=== PATIENT | female | born 1970 | race Caucasian/White ===

== ENCOUNTER → 2023-06-03 | Outpatient (CLI) | payer BC, SELFPAY ==
[2023-06-03 09:19] LABS: Hematocrit 42.1 % (37-47); Hemoglobin 14.4 g/dL (12.0-15.0); Mean Corp Hgb Conc 34.2 g/dL (32-36); Mean Corpuscular Hgb 30.3 pg (27.0-32.0); Mean Corpuscular Volume 88.6 fL (81-99); Mean Platelet Vol. 9.7 fl (6.2-12.0); Platelet Count 247 K/mm3 (150-450); RBC Distribution Width CV 11.8 % (11.6-14.6); RBC Distribution Width SD 37.8 fl (35.1-43.9); Red Blood Count 4.75 M/mm3 (4.2-5.4)
[2023-06-03 09:36] LABS: Hemoglobin A1c 7.2 % (3.8-5.6)
[2023-06-03 09:56] LABS: ALB/GLOB Ratio 0.8 RATIO (0.9-2.4); AST(SGOT) 37 U/L (15-37); Alanine Aminotransfer ALT/SGPT 51 U/L (13-56); Albumin, Serum 3.4 g/dL (3.2-5.0); Alkaline Phosphatase 113 U/L (45-117); Anion Gap 6 (5-15); BUN 9 mg/dL (7-18); BUN/Creat Ratio 15.1 RATIO (10-20); Calcium,Total 9.3 mg/dL (8.5-10.1); Chloride 107 mmol/L (98-107); EST Glomerular Filtration Rate 112 mL/min (>60); Est Glom Filt Rate - Afr Amer 136 mL/min (>60); Globulin 4.5 g/dL (2.2-4.2); Glucose 189 mg/dL (74-106); Potassium 3.8 mmol/L (3.5-5.1); Protein, Total 7.9 g/dL (6.4-8.2); Sodium Level 139 mmol/L (136-145); T4 Free Direct 1.51 ng/dL (0.76-1.46); Thyroid Stim Hormone (TSH) 0.42 uIU/mL (0.358-3.74)
[2023-06-03 11:51] LABS: Microalbumin,Random Urine 69.7 mg/L (NO RANGE EST.); Microalbumin:Creatinine Ratio 57.6 mg/g CRE (<30 mg/g CRE)
[2023-06-05 08:12] LABS: Thyroglobulin Antibody < 1.0 IU/mL (0.0-0.9); Thyroid Peroxidase AB 11 IU/mL (0-34); Thyroid Stim Immunoglob <0.10 IU/L (0.00-0.55)
== END | disposition home or self-care (01) ==
LOC: LAB 07:58
PROVIDERS: PCP Nurse Practitioner Family; Referring Provider Nurse Practitioner Family; Visit Provider Nurse Practitioner Family
DX: E11.65 Type 2 diabetes mellitus with hyperglycemia (principal); I10 Essential (primary) hypertension; E03.9 Hypothyroidism, unspecified
CPT/HCPCS: 36415; 80053; 82043; 82570; 83036; 84439; 84443; 84445; 85027; 86376; 86800

== ENCOUNTER 2024-12-15 23:13 | Emergency (ER) | payer BC, SELFPAY ==
[2024-12-15 23:14] VITALS: BP 200/91; PULSE 84; RESP 18; TEMP 36; O2SAT 97
--- OUTSIDE RECORDS SUMMARY | 2024-12-15 23:38 | XMS RPT_ITS | CCD ---
Author Organization [facility] Care Team Providers Care Bell Maker Name Role Phone Ivonne More MD Primary Care Provider Unavailable Primary Care Provider Unavailabl e Marilee ARTISTS' MODEL, Tessa Referring Unavailable Marilee ARTISTS' MODEL, Tessa Attending Unavailable Marilee ARTISTS' MODEL, Tessa Primary Care Unavailable TESSA DUMONT QUALITY LIAISON Attending Unavailable TESSA DUMONT CNP Consulting Unavailable TESSA DUMONT CNP Primary Care Unavailable TESSA DUMONT CNP Admitting Unavailable PROVIDER, UNKNOWN Consulting Unavailable PROVIDER, UNKNOWN Consulting Unavailable TESSA DUMONT CNP Attending Unavailable TESSA DUMONT CNP Consulting Unavailable TESSA DUMONT CNP Primary Care Unavailable TESSA DUMONT CNP Admitting Unavailable PROVIDER, UNKNOWN Consulting Unavailable PROVIDER, UNKNOWN Consulting Unavailable Allergies Allergy Classification Reported Allergen(s) Allergy Type Date of Onset Reaction(s) Facility (10 sources) Azithromycin Drug Allergy 04-11-2021 Unknown [facility] Work Phone: (1 source) Azithromycin Drug Allergy 12-19-2021 [facility] Repository (1 source) Azithromycin Drug Allergy [facility] Repository Medications Current Medications Medication Drug Class(es) Dates Sig (Normalized) Sig (Original) benzonatate 100 mg oral capsule (2 sources) Non-narcotic Antitussive Start: 4 End: 4 take 1 capsule by mouth every eight hours as needed for cough and cough benzonatate (TESSALON PERLES) 100 mg capsule Indications: Acute cough Take 1 capsule by mouth three times a day as needed for cough for up to 21 days. 21 capsule 0 04/07/2023 04/28/2023 Active Comment on above: Take 1 capsule by [facility] three times a day as needed for cough for up to 21 days. cyclobenzaprine hydrochloride 10 mg oral tablet (1 source) Muscle Relaxant Start: 2 take 10 mg by mouth at bedtime Cyclobenzaprine Active 10 MG PO BEDTIME December 19, 2021 1:00am methylPREDNISolone (2 sources) Corticosteroid Start: End: 4 methylPREDNISolone (MEDROL, MITALI,) 4 mg Dose-Pack Indications: Acute cough Take as instructed per package. 21 tablet 0 04/07/2023 04/13/2023 Active Start: 04-07-2023 End: 04-07-2023 methylPREDNISolone (MEDROL, MITALI,) 4 mg Dose-Pack Indications: Acute cough Take as instructed per package. 21 tablet 0 04/07/2023 04/07/2023 Discontinued Comment on above: Take as instructed p er package. Completed/Discontinued Medications Medication Drug Class(es) Dates Sig (Normalized) Sig (Original) [id number] 200 actuat albuterol 0.09 mg/actuat metered dose inhaler (2 sources) beta2-Adrenergic Agonist Start: 04-07-2023 End: 04-07-2023 take 2 puff(s) by inhalation every four hours as needed for wheezing albuterol HFA (PROVENTIL HFA, VENTOLIN HFA) 90 mcg/actuation inhaler Indications: Acute cough Inhale 2 Puffs as instructed every 4 hours as needed for wheezing/shortness of breath. 1 Each 0 04/07/2023 Active Comment on above: Inhale 2 Puffs as in structed every 4 hours as needed for wheezing/shortness of breath. amLODIPine 10 mg oral tablet (12 sources) Dihydropyridine Calcium Channel Rosanne Start: 06-10-2021 End: 04-07-2023 take 1 tablet by mouth once daily amLODIPine (NORVASC) 10 mg tablet Indications: Primary hypertension Take 1 tablet by mouth once daily. 30 tablet 0 04/07/2023 04/07/2023 Discontinued Start: 06-07-2021 take 1 tablet by gregor th once daily amLODIPine (NORVASC) 10 mg tablet Take 1 tablet by mouth once daily. 30 tablet 11 06/07/2021 Active Start: 04-11-2021 End: 06-07-2021 take 1 tablet by mouth once daily amLODIPine (NORVASC) 5 mg tablet Take 1 tablet by mouth once daily. 30 tablet 2 04/11/2021 06/07/2021 Discontinued Comment on above: Take 1 tablet by gregor once daily. fluticasone propionate 0.05 mg/actuat metered dose nasal spray (1 source) Corticosteroid Start: take 1 spray(s) nasal route once daily fluticasone (FLONASE ALLERGY RELIEF) 50 mcg/actuation nasal spray Indications: Acute cough Use 1 Yale in each nostril once daily. 1 Each 0 04/07/2023 Active Comment on above: Use 1 Yale in each nostril once daily. Problems Active Problems Problem Classification Problem Date Documented Da te Episodic/Chronic Diabetes mellitus with complications (3 sources) Type 2 diabetes mellitus with hyperglycemia; Translations: [Type 2 diabetes mellitus with hyperglycemia] Onset: 06-09-2023 Chronic Diabetes or abnormal glucose tolerance complicating ; childbirth; or the puerperium (9 sources) Unspecified diabetes mellitus in , unspecified trimester; Translations: [Diabetes mellitus of mother, complicating , childbirth, or the puerperium, antepartum condition or complication] Onset: 08-19-2010 08-19-2010 Chronic Disorders of lipid metabolism (1 source) Hyperlipidemia, unspecified; Translations: [Hyperlipidemia, unspecified] Onset: 08-26-2024 Chronic E Codes: Natural/environment (1 source) Dog scratch; Translations: [Other contact with dog, initial encounter] Episodic Essential hypertension (5 sources) Hypertensive disorder; Translations: [Essential (primary) hypertension] Onset: 04-28-2024 Chronic Other lower respiratory disease (1 source) Dyspnea on exertion; Translations: [Shortness of breath] Episodic Other lower respiratory disease (1 source) Cough; Translations: [Acute cough] 04-07-2023 Episodic Other non-traumatic joint disorders (1 source) Pain in right knee; Translations: [Pain in joint, lower leg] Episodic Other nutritional; endocrine; and metabolic disorders (2 sources) Severe obesity; Translations: [Morbid (severe) obesity due to excess calories] Chronic Other nutritional; endocrine; and metabolic disorders (9 sources) Obesity; Translations: [Obesity, unspecified] Onset: 07-03-2006 07-03-2006 Chronic Sprains and strains (2 sources) Strain of muscle, fascia and tendon of other parts of biceps, left arm, initial encounter; Translations: [Strain of left biceps] 12-19-2021 Episodic Thyroid disorders (1 source) Hypothyroidism, unspecified; Translations: [Hypothyroidism, unspecified] Onset: 04-28-2024 Chronic Past or Other Problems Problem Classification Problem Date Documented Da te Episodic/Chronic Hypertension complicating ; childbirth and the puerperium (9 sources) -induced hypertension; Translations: [Gestational [-induced] hypertension without significant proteinuria, unspecified trimester] Onset: 02-05-2011 02-05-2011 Episodic Other complications of (9 sources) Multigravida of advanced maternal age; Translations: [Supervision of elderly multigravida, unspecified trimester] Onset: 08-19-2010 08-19-2010 Episodic Other complications of (9 sources) Supervision of other high risk pregnancies, unspecified trimester; Translations: [Supervision of other high-risk ] Onset: 08-19-2010 08-19-2010 Episodic Results Test Name Value Interpretation Reference Range Facility Thyroglobulin Antibodyon TG AB < 1.0 Normal 0.0-0.9 [facility] Comment on above: Result Comment: Thyr oglobulin Antibody measured by [employer] Methodology It should be noted that the presence of thyroglobulin antibodies may not be pathogenic nor diagnostic, especially at very low levels. The assay retail account representative has found that four percent of individuals without evidence of thyroid disease or autoimmunity will have positive TgAb levels up to 4 IU/mL. Performed By: #### L [id number], L100.0500, L3400.4700, L506.0400, L500.4050, L501.9985, L502.0250, L3300.7027, L3300.6900 #### [facility] [address] [place], [place], [id number] Thyroid Peroxidase ABon 05-11 THYR PEROX AB 11 IU/mL Normal 0-34 [facility] Comment on above: Result Comment: Perf ormed at: - [address] [id number] [employer] Repairer: Mckay Bustillos MD, Phone: [phone] Performed at: [facility] [address] [id number] [employer] Repairer: Messi Hamlin PhD, Phone: [phone] Performed By: #### L [id number], L100.0500, L3400.4700, L506.0400, L500.4050, L501.9985, L502.0250, L3300.7027, L3300.6900 #### [facility] [address] [place], [place], [id number] Thyroid Stim Immunoglobon THY STIM IMMUNO <0.10 Normal 0.00-0.55 [facility] Comment on above: Performed By: #### L [id number], L100.0500, L3400.4700, L506.0400, L500.4050, L501.9985, L502.0250, L3300.7027, L3300.6900 #### [facility] [address] [facility] [place], [place], [id number] Basophil percentageOrdered B y: Tessa Martinezler on 06-03-2023 Bilirubin [Mass/Vol] 0.40 mg/dL 0.20-1.00 [facility] Comment on above: For patients on eltr ombopag therapy, use of Dimension [place] TBIL is not recommended. Chloride [Moles/Vol] 107 mmol/L 98-107 [facility] Glucose [Mass/Vol] 189 mg/dL 74-106 [facility] Comment on above: Fasting Glucose resu lt greater than or equal to 126 mg/dL suggests DIABETES MELLITUS per A.D.A. criteria. Hemoglobin (Bld) [Mass/Vol] 14.4 g/dL 12.0-15.0 [facility] Potassium [Moles/Vol] 3.8 mmol/L 3.5-5.1 [facility] Protein [Mass/Vol] 7.9 g/dL 6.4-8.2 [facility] Sodium [Moles/Vol] 139 mmol/L 136-145 [facility] WBC (Bld) [#/Vol] 8.0 10*3/uL 4.4-11.0 [facility] CBC-Complete Blood Cnt No Di ffon 06-03-2023 Erythrocyte distribution width (RBC) [Ratio] 11.8 % Normal 11.6-14.6 [facility] Comment on above: Performed By: #### L 501.9520, L100.0500, L3400.4700, L506.0400, L500.4050, L501.9985, L502.0250, L3300.7027, L3300.6900 #### [facility] [address] [place], [address] Hematocrit (Bld) [Volume fraction] 42.1 % Normal 37-47 [facility] Comment on above: Performed By: #### L [id number], L100.0500, L3400.4700, L506.0400, L500.4050, L501.9985, L502.0250, L3300.7027, L3300.6900 #### [facility] [address] [facility], [address] Hemoglobin (Bld) [Mass/Vol] 14.4 g/dL Normal 12.0-15.0 [facility] Comment on above: Performed By: #### L [id number], L100.0500, L3400.4700, L506.0400, L500.4050, L501.9985, L502.0250, L3300.7027, L3300.6900 #### [facility] [address] [place], [address] MCH (RBC) [Entitic mass] 30.3 pg Normal 27.0-32.0 [facility] Comment on above: Performed By: #### L [id number], L100.0500, L3400.4700, L506.0400, L500.4050, L501.9985, L502.0250, L3300.7027, L3300.6900 #### [facility] [address] [place], [address] MCHC (RBC) [Mass/Vol] 34.2 g/dL Normal 32-36 [facility] Comment on above: Performed By: #### L 501.9520, L100.0500, L3400.4700, L506.0400, L500.4050, L501.9985, L502.0250, L3300.7027, L3300.6900 #### [facility] [address] [place], [address] MCV (RBC) [Entitic vol] 88.6 fL Normal 81-99 [facility] Comment on above: Performed By: #### L 501.9520, L100.0500, L3400.4700, L506.0400, L500.4050, L501.9985, L502.0250, L3300.7027, L3300.6900 #### [facility] [address] [place], [address] Platelet mean volume (Bld) [Entitic vol] 9.7 fL Normal 6.2-12.0 [facility] Comment on above: Performed By: #### L 501.9520, L100.0500, L3400.4700, L506.0400, L500.4050, L501.9985, L502.0250, L3300.7027, L3300.6900 #### [facility] [address] [place], [address] Platelets (Bld) [#/Vol] 247 10*3/uL Normal 150-450 [facility] Comment on above: Performed By: #### L 501.9520, L100.0500, L3400.4700, L506.0400, L500.4050, L501.9985, L502.0250, L3300.7027, L3300.6900 #### [facility] [address] [place], [address] RBC (Bld) [#/Vol] 4.75 10*6/uL Normal 4.2-5.4 [facility] Comment on above: Performed By: #### L 501.9520, L100.0500, L3400.4700, L506.0400, L500.4050, L501.9985, L502.0250, L3300.7027, L3300.6900 #### [facility] [address] [facility] [place], [address] RDW SD 37.8 fl Normal 35.1-43.9 [facility] Comment on above: Performed By: #### L 501.9520, L100.0500, L3400.4700, L506.0400, L500.4050, L501.9985, L502.0250, L3300.7027, L3300.6900 #### [facility] [address] [facility] [place], [address] WBC (Bld) [#/Vol] 8.0 10*3/uL Normal 4.4-11.0 [facility] Comment on above: Performed By: #### L 501.9520, L100.0500, L3400.4700, L506.0400, L500.4050, L501.9985, L502.0250, L3300.7027, L3300.6900 #### [facility] [address] [facility] [place], [address] [facility] Albumin [Mass/Vol] 3.4 g/dL Normal 3.2-5.0 [facility] Comment on above: Performed By: #### L 501.9520, L100.0500, L3400.4700, L506.0400, L500.4050, L501.9985, L502.0250, L3300.7027, L3300.6900 #### [facility] [address] [facility] [place], [address] Albumin/Globulin [Mass ratio] 0.8 {ratio} Low 0.9-2.4 [facility] Comment on above: Performed By: #### L 501.9520, L100.0500, L3400.4700, L506.0400, L500.4050, L501.9985, L502.0250, L3300.7027, L3300.6900 #### [facility] [address] [place], [address] ALK P 113 U/L Normal 45-117 [facility] Comment on above: Performed By: #### L 501.9520, L100.0500, L3400.4700, L506.0400, L500.4050, L501.9985, L502.0250, L3300.7027, L3300.6900 #### [facility] [address] [place], [address] ALT [Catalytic activity/Vol] 51 U/L Normal 13-56 [facility] Comment on above: Performed By: #### L 501.9520, L100.0500, L3400.4700, L506.0400, L500.4050, L501.9985, L502.0250, L3300.7027, L3300.6900 #### [facility] [address] [place], [address] AST [Catalytic activity/Vol] 37 U/L Normal 15-37 [facility] Comment on above: Performed By: #### L 501.9520, L100.0500, L3400.4700, L506.0400, L500.4050, L501.9985, L502.0250, L3300.7027, L3300.6900 #### [facility] [address] [place], [address] Bilirubin [Mass/Vol] 0.40 mg/dL Normal 0.20-1.00 [facility] Comment on above: Result Comment: For patients on eltrombopag therapy, use of Dimension [place] TBIL is not recommended. Performed By: #### L 501.9520, L100.0500, L3400.4700, L506.0400, L500.4050, L501.9985, L502.0250, L3300.7027, L3300.6900 #### [facility] [address] [place], [address] BUN/CRE 15.1 RATIO Normal 10-20 [facility] Comment on above: Performed By: #### L 501.9520, L100.0500, L3400.4700, L506.0400, L500.4050, L501.9985, L502.0250, L3300.7027, L3300.6900 #### [facility] [address] [place], [address] CA,Total 9.3 mg/dL Normal 8.5-10.1 [facility] Comment on above: Performed By: #### L 501.9520, L100.0500, L3400.4700, L506.0400, L500.4050, L501.9985, L502.0250, L3300.7027, L3300.6900 #### [facility] [address] [place], [address] Chloride [Moles/Vol] 107 mmol/L Normal 98-107 [facility] Comment on above: Performed By: #### L 501.9520, L100.0500, L3400.4700, L506.0400, L500.4050, L501.9985, L502.0250, L3300.7027, L3300.6900 #### [facility] [address] [place], [address] CO2 [Moles/Vol] 26.0 mmol/L Normal 21.0-32.0 [facility] Comment on above: Performed By: #### L 501.9520, L100.0500, L3400.4700, L506.0400, L500.4050, L501.9985, L502.0250, L3300.7027, L3300.6900 #### [facility] [address] [place], [place], [address] Creatinine [Mass/Vol] 0.60 mg/dL Normal 0.55-1.02 [facility] Comment on above: Result Comment: The validity of the calculated GFR GFRAA in patients over 70 years has not been determined. Clinical correlation is essential. Performed By: #### L 501.9520, L100.0500, L3400.4700, L506.0400, L500.4050, L501.9985, L502.0250, L3300.7027, L3300.6900 #### [facility] [address] [place], [place], [id number] EST GFR - AA 136 mL/min Normal >60 [facility] Comment on above: Result Comment: Afri can Algerian GFR Calc Performed By: #### L 501.9520, L100.0500, L3400.4700, L506.0400, L500.4050, L501.9985, L502.0250, L3300.7027, L3300.6900 #### [facility] [address] [place], [address] GAP 6 Normal 5-15 [facility] Comment on above: Performed By: #### L 501.9520, L100.0500, L3400.4700, L506.0400, L500.4050, L501.9985, L502.0250, L3300.7027, L3300.6900 #### [facility] [address] [place], [place], [id number] GFR/1.73 sq M.predicted among non-blacks MDRD (S/P/Bld) [Vol rate/Area] 112 mL/min/{1.73_m2} Normal >60 [facility] Comment on above: Result Comment: Non- GFR Calc Performed By: #### L 501.9520, L100.0500, L3400.4700, L506.0400, L500.4050, L501.9985, L502.0250, L3300.7027, L3300.6900 #### [facility] [address] [place], [address] Globulin (S) [Mass/Vol] 4.5 g/dL High 2.2-4.2 [facility] Comment on above: Performed By: #### L 501.9520, L100.0500, L3400.4700, L506.0400, L500.4050, L501.9985, L502.0250, L3300.7027, L3300.6900 #### [facility] [address] [place], [address] Glucose [Mass/Vol] 189 mg/dL High 74-106 [facility] Comment on above: Result Comment: Fast ing Glucose result greater than or equal to 126 mg/dL suggests DIABETES MELLITUS per A.D.A. criteria. Performed By: #### L 501.9520, L100.0500, L3400.4700, L506.0400, L500.4050, L501.9985, L502.0250, L3300.7027, L3300.6900 #### [facility] [address] [place], [address] Potassium [Moles/Vol] 3.8 mmol/L Normal 3.5-5.1 [facility] Comment on above: Performed By: #### L 501.9520, L100.0500, L3400.4700, L506.0400, L500.4050, L501.9985, L502.0250, L3300.7027, L3300.6900 #### [facility] [address] [place], [address] Sodium [Moles/Vol] 139 mmol/L Normal 136-145 [facility] Comment on above: Performed By: #### L 501.9520, L100.0500, L3400.4700, L506.0400, L500.4050, L501.9985, L502.0250, L3300.7027, L3300.6900 #### [facility] [address] [place], [place], [id number] T PROT 7.9 g/dL Normal 6.4-8.2 [facility] Comment on above: Performed By: #### L 501.9520, L100.0500, L3400.4700, L506.0400, L500.4050, L501.9985, L502.0250, L3300.7027, L3300.6900 #### [facility] [address] [place], [place], [id number] Urea nitrogen [Mass/Vol] 9 mg/dL Normal 7-18 [facility] Comment on above: Performed By: #### L 501.9520, L100.0500, L3400.4700, L506.0400, L500.4050, L501.9985, L502.0250, L3300.7027, L3300.6900 #### [facility] [address] [place], [place], [id number] Determination of erythrocyte mean corpuscular volume (MCV)Ordered By: Tessa Dumont on 06-03-2023 MCV (RBC) [Entitic vol] 88.6 fL 81-99 [facility] Erythrocyte distribution wid th ratioOrdered By: Tessa Dumont on 06-03-2023 Erythrocyte distribution width (RBC) [Ratio] 11.8 % 11.6-14.6 [facility] Erythrocyte distribution wid th standard deviationOrdered By: Tessa Dumont on 06-03-2023 Erythrocyte distribution width (RBC) [Entitic vol] 37.8 fL 35.1-43.9 [facility] Hematocrit Auto (Bld) [Volum e fraction]Ordered By: Tessa Dumont on 06-03-2023 Hematocrit (Bld) [Volume fraction] 42.1 % 37-47 [facility] Hemoglobin A1con 06-03-2023 HbA1c (Bld) [Mass fraction] 7.2 % High 3.8-5.6 [facility] Comment on above: Result Comment: Norm al < 5.7 % Prediabetic 5.7 - 6.4 % Diabetic >or= 6.5 % Please note range changes. Performed By: #### L 501.9520, L100.0500, L3400.4700, L506.0400, L500.4050, L501.9985, L502.0250, L3300.7027, L3300.6900 #### [facility] [address] [place], [place], [id number] Laboratory - Chemistry and C hemistry - challengeOrdered By: Tessa Dumont on 06-03-2023 Albumin/Globulin [Mass ratio] 0.8 {ratio} 0.9-2.4 [facility] ALP [Catalytic activity/Vol] 113 U/L 45-117 [facility] ALT [Catalytic activity/Vol] 51 U/L 13-56 [facility] CO2 [Moles/Vol] 26.0 mmol/L 21.0-32.0 [facility] Globulin (S) [Mass/Vol] 4.5 g/dL 2.2-4.2 [facility] Urea nitrogen/Creatinine [Mass ratio] 15.1 mg/mg 10-20 [facility] Laboratory - Hematology and Cell countsOrdered By: Tessa Dumont on 06-03-2023 MCH (RBC) [Entitic mass] 30.3 pg 27.0-32.0 [facility] MCHC (RBC) [Mass/Vol] 34.2 g/dL 32-36 [facility] Platelet mean volume (Bld) [Entitic vol] 9.7 fL 6.2-12.0 [facility] Platelets (Bld) [#/Vol] 247 10*3/uL 150-450 [facility] Microalb:Creat Ratio,Random URon 06-03-2023 Creatinine [Mass/Vol] 121.00 mg/dL Normal NO RAN GE EST. [facility] Comment on above: Performed By: #### L 501.9520, L100.0500, L3400.4700, L506.0400, L500.4050, L501.9985, L502.0250, L3300.7027, L3300.6900 #### [facility] [address] [place], [place], [id number] MALB:CRE 57.6 mg/g CRE High <30 mg/g CRE [facility] Comment on above: Performed By: #### L 501.9520, L100.0500, L3400.4700, L506.0400, L500.4050, L501.9985, L502.0250, L3300.7027, L3300.6900 #### [facility] [address] [place], [place], [id number] MICROALBUMIN,UR 69.7 mg/L Normal NO RANGE EST. [facility] Comment on above: Performed By: #### L 501.9520, L100.0500, L3400.4700, L506.0400, L500.4050, L501.9985, L502.0250, L3300.7027, L3300.6900 #### [facility] [address] [facility] [address] [place], [place], [id number] No Panel InformationOrdered By: Tessa Dumont on 06-03-2023 Estimated GFR (MDRD) Amer 136 mL/min >60 [facility] Comment on above: GFR Calc Estimated GFR (MDRD) Non-Af Amer 112 mL/min >60 [facility] Comment on above: Non- GFR Calc Thyroglobulin Antibody < 1.0 IU/mL 0.0-0.9 [facility] Comment on above: Thyroglobulin Antibo dy measured by [employer] CoulterMethodologyIt should be noted that the presence of thyroglobulinantibodies may not be pathogenic nor diagnostic, especiallyat very low levels. The assay retail account representative has found thatfour percent of individuals without evidence of thyroiddisease or autoimmunity will have positive TgAb levels upto 4 IU/mL. Urine Microalbumin/Creatini ne Ratio 57.6 mg/g CRE <30 [facility] RBC Auto (Bld) [#/Vol]Ordere d By: Tessa Dumont on 06-03-2023 RBC (Bld) [#/Vol] 4.75 10*6/uL 4.2-5.4 [facility] Serum or plasma calcium clari urement (mass/volume)Ordered By: Tessa Dumont on 06-03-2023 Calcium [Mass/Vol] 9.3 mg/dL 8.5-10.1 [facility] Serum or plasma creatinine m easurement (mass/volume)Ordered By: Tessa Dumont on 06-03-2023 Creatinine [Mass/Vol] 0.60 mg/dL 0.55-1.02 [facility] Comment on above: The validity of the calculated GFR & GFRAA in patients over 70 years has not been determined. Clinical correlation is essential. Serum or plasma thyroid stim ulating hormone (TSH) measurement (units/volume)Ordered By: Tessa Dumont on 06-03-2023 TSH Qn 0.42 uIU/mL 0.358-3.74 [facility] Serum or plasma thyroperoxid ase antibody assay (units/volume)Ordered By: Tessa Dumont on 06-03-2023 TPO Ab Qn 11 [IU]/mL 0-34 [facility] Comment on above: Performed at: [facility] - [address] [id number] Director: Mckay Bustillos MD, Phone: [phone] at: - [facility] [address] [id number] Director: Messi Hamlin PhD, Phone: [phone] Serum or plasma urea nitroge n measurement (mass/volume)Ordered By: Tessa Dumont on 06-03-2023 Urea nitrogen [Mass/Vol] 9 mg/dL 7-18 [facility] T4 Free Directon 06-03-2023 T4 FREE DIRECT 1.51 ng/dL High 0.76-1.46 [facility] Comment on above: Performed By: #### L 501.9520, L100.0500, L3400.4700, L506.0400, L500.4050, L501.9985, L502.0250, L3300.1579, L3300.7930 #### [facility] [facility] [place], [address] Thin prep Papanicolaou smear with manual screeningOrdered By: Tessa Dumont on 06-03-2023 Thin prep Papanicolaou smear with manual screening 3.4 g/dL 3.2-5.0 [facility] Thin prep Papanicolaou smear with manual screening 37 U/L 15-37 [facility] Thin prep Papanicolaou smear with manual screening 6 5-15 [facility] Thin prep Papanicolaou smear with manual screening 69.7 mg/L NO RANGE EST. [facility] Thin prep Papanicolaou smear with manual screening 1.51 ng/dL 0.76-1.46 [facility] Thyroid Stim Hormone (TSH)on 06-03-2023 TSH 0.42 uIU/mL Normal 0.358-3.74 [facility] Comment on above: Performed By: #### L 501.9520, L100.0500, L3400.4700, L506.0400, L500.4050, L501.9985, L502.0250, L3300.7027, L3300.6900 #### [facility] [address] [place] [address], [address] Thyroid stimulating immunogl obulins detectionOrdered By: Tessa Dumont on 06-03-2023 Thyroid stimulating immunoglobulins Ql (S) <0.10 IU/L 0.00-0.55 [facility] Urine creatinine measurement (mass/volume)Ordered By: Tessa Dumont on 06-03-2023 Creatinine (U) [Mass/Vol] 121.00 mg/dL NO RANGE EST. [facility] Whole blood hemoglobin A1c/t otal hemoglobin ratio (mass fraction)Ordered By: Tessa Dumont on 06-03-2023 HbA1c (Bld) [Mass fraction] 7.2 % 3.8-5.6 [facility] Comment on above: Normal < 5.7 % Predi abetic 5.7 - 6.4 % Diabetic >or= 6.5 % Please note range changes. HbA1c (Bld)on 09-09-2022 Average glucose Estimated from glycated hemoglobin (Bld) [Mass/Vol] 146 mg/dL Normal [facility] Comment on above: Order Comment: Speci men Type: BLOOD SPECIMEN Ordering Facility: [facility] Address: [facility] [place] [address] Result Comment: eAG: (Estimated average glucose) is a calculated value from HgbA1c and is insurance claim representative of the average blood glucose level in the last 2-3 month period. Performed By: #### 5 5454-3, MICRO, TGAB, TSIGIM, 95787-1 #### [facility] CLIA [id number] [address] [place] [address] [place] HbA1c (Bld) [Mass fraction] 6.7 % High 4.3-5.6 [facility] Comment on above: Order Comment: Shaun fuentes Type: BLOOD SPECIMEN Ordering Facility: [facility] Address: [facility] [place] [address] Result Comment: Amer ican Diabetes Association guidelines indicate that patients with HgbA1c in the range 5.7-6.4% are at increased risk for development of diabetes, and intervention by lifestyle modification may be beneficial. HgbA1c greater or equal to 6.5% is considered diagnostic of diabetes. Performed By: #### 5 5454-3, MICRO, TGAB, TSIGIM, 71077-9 #### [facility] CLIA [id number] [address] [place] [address] [place] THYROID PEROXIDASE ANTIBODY BLOODon 09-09-2022 TPO Ab Qn [IU]/mL Normal <5.6 [facility] Comment on above: Order Comment: Shaun fuentes Type: BLOOD SPECIMEN Ordering Facility: [facility] Address: [facility] [place] [address] Result Comment: Thyr oid Peroxidase Antibody test is used as an aid in diagnosis of autoimmune thyroid disease. Clinical correlation is required. Performed By: #### 5 5454-3, MICRO, TGAB, TSIGIM, 03083-3 #### [facility] CLIA [id number] [facility] [place] [id number] [place] THYROID STIMULATING IMMUNOGL OBULIN BLOODon 09-09-2022 Thyroid stimulating immunoglobulins actual/normal (S) [Relative mass conc] % Normal <0.55 [facility] Comment on above: Order Comment: Shaun fuentes Type: BLOOD SPECIMEN Ordering Facility: [facility] Address: [address] [place] [address] Result Comment: Thyr oid Stimulating Immunoglobulin test is used as an aid in diagnosis of autoimmune hyperthyroidism especially in patients with Grave's orbitopathy and dermopathy. Low positive TSH receptor stimulating antibody levels may occasionally be found in patients with autoimmune hypothyroidism. Clinical correlation is required. Performed By: #### 5 5454-3, MICRO, TGAB, TSIGIM, 72090-6 #### [facility] CLIA [id number] [address] [place] [address] [place] TSI QUALITATIVE Negative Normal Negative [facility] Comment on above: Order Comment: Shaun fuentes Type: BLOOD SPECIMEN Ordering Facility: [facility] Address: [address] [place] [address] Performed By: #### 5 5454-3, MICRO, TGAB, TSIGIM, 85924-0 #### [facility] CLIA [id number] [address] [place] [address] [place] Thyroglob + Thyroglob Ab pnl SerPlon 09-09-2022 Thyroglobulin Ab Qn [IU]/mL Normal <4.0 [facility] Comment on above: Order Comment: Shaun fuentes Type: BLOOD SPECIMEN Ordering Facility: [facility] Address: [address] [place] [address] Result Comment: The Thyroglobulin Antibody test was performed using the [employer] DXI paramagnetic particle chemiluminescent immunoassay method. Results obtained with different assay methods or kits cannot be used interchangeably. Performed By: #### 5 5454-3, MICRO, TGAB, TSIGIM, 63409-4 #### [facility] CLIA [id number] [address] [place] [address] [place] Thyroglobulin and Thyrogobul in Ab panelon 09-09-2022 THYROGLOBULIN, SERUM 37.1 ng/mL Normal 1.6-50.0 [facility] Comment on above: Order Comment: Shaun men Type: BLOOD SPECIMEN Ordering Facility: [facility] Address: [address] [place] [address] Result Comment: The Thyroglobulin test was performed using the [employer] DXI paramagnetic particle chemiluminescent immunoassay method. Results obtained with different assay methods or kits cannot be used interchangeably. Performed By: #### 5 5454-3, MICRO, TGAB, TSIGIM, 62451-3 #### [facility] CLIA [id number] [address] [place] [address] [place] 1,25-dihydroxyvitamin D3 [Ma ss/Vol]on 09-03-2022 VIT D1,25 DIHYDROXY 37.2 pg/mL Normal 19.9-79.3 [facility] Comment on above: Order Comment: Shaun fuentes Type: BLOOD SPECIMEN Ordering Facility: [facility] Address: [address] [place] [address] Performed By: #### 5 5454-3, 1648-3 #### [facility] CLIA [id number] [address] [place] [address] [place] HbA1c (Bld)on 09-03-2022 Average glucose Estimated from glycated hemoglobin (Bld) [Mass/Vol] 148 mg/dL Normal [facility] Comment on above: Order Comment: Shaun fuentes Type: BLOOD SPECIMEN Ordering Facility: [facility] Address: [address] [place] [address] Result Comment: eAG: (Estimated average glucose) is a calculated value from HgbA1c and is insurance claim representative of the average blood glucose level in the last 2-3 month period. Performed By: #### 5 5454-3, 164-3 #### [facility] CLIA [id number] [address] [place] [address] [place] HbA1c (Bld) [Mass fraction] 6.8 % High 4.3-5.6 [facility] Comment on above: Order Comment: Shaun alfredo Type: BLOOD SPECIMEN Ordering Facility: [facility] Address: [address] [place] [address] Result Comment: Amyohana ican Diabetes Association guidelines indicate that patients with HgbA1c in the range 5.7-6.4% are at increased risk for development of diabetes, and intervention by lifestyle modification may be beneficial. HgbA1c greater or equal to 6.5% is considered diagnostic of diabetes. Performed By: #### 5 5454-3, 1649-3 #### [facility] CLIA [id number] [address] [place] [address] [facility] Ford 08-08-2021 CNPN Telephone [facility] -- CHAPITO WINTERS ([id number]) 1970 F Date Time Provider Department 08/08/21 ANITA RESTREPO [facility] During your visit today, we recorded the following information about you: Radha Rodriguez Data Pss 08/08/2021 12:13 PM Signed I called patient - to schedule a Physical Performance Test - -she does not know where [facility] is. I tried explaining then she got a call. Asked me to call her back. Tried calling back line was busy. I will try again later. Scooby Young RN 08/08/2021 12:59 PM Signed Patient calling to request order for Physical Performance Test be faxed to [facility] . Done. Scooby Young RN Allergies As of Date: 08/08/2021 Noted Allergy Reaction AZITHROMYCIN 04/11/2021 16 - Unknown Date Reviewed: 07/02/2021 Reviewed by: Nevaeh Rogers APRN.FAMILY COUNSELOR - Fully Assessed Reason for Visit: try to schedule a physical Performance Test [Other] Prescriptions as of 08/08/2021 - amLODIPine (NORVASC) 10 mg tablet Take 1 tablet by mouth once daily. 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] 08/19/2010 Gestational hypertension [O13.9] 02/05/2011 Encounter Status:Closed by SCOOBY YOUNG on 08/08/21 [facility] Vital Signs Date Time Vital Sign Value Performing Clinician Faci lity 04-07-2023 18:20-0500 Diastolic blood pressure 100 mm[Hg] Deepika Josue-Eibara [employer]KER [employer].QUALITY LIAISON Work Phone: [facility] 04-07-2023 18:20-0500 Systolic blood pressure 180 mm[Hg] Deepika Josue-Eibara [employer].QUALITY LIAISON Work Phone: [facility] 04-07-2023 18:17-0500 Body temperature 97 [degF] Deepika Josue-Eibara [employer] MA[employer].QUALITY LIAISON Work Phone: [facility] 04-07-2023 18:17-0500 Heart rate 104 /min Deepika Josue-Eibara [employer].QUALITY LIAISON Work Phone: [facility] 04-07-2023 18:17-0500 Respiratory rate 22 /min Deepika Josue-Eibara [employer].QUALITY LIAISON Work Phone: [facility] 04-07-2023 18:17-0500 SaO2% (BldA) [Mass fraction] 97 % Deepika Josue-Eibara [employer].QUALITY LIAISON Work Phone: [facility] 07-02-2021 09:12-0400 Diastolic blood pressure 85 mm[Hg] Nevaeh Rogers BOX MA[employer] WO[employer].FAMILY COUNSELOR Work Phone: [facility] 07-02-2021 09:12-0400 Heart rate 69 /min Nevaeh Rogers [employer]OX MAKER WO[employer].FAMILY COUNSELOR Work Phone: [facility] 07-02-2021 09:12-0400 Systolic blood pressure 138 mm[Hg] Nevaeh Rogers BOX MAKER WO[employer].FAMILY COUNSELOR Work Phone: [facility] 07-02-2021 09:08-0400 Body weight 159.21 kg Nevaeh Rogers [employer] MAK[employer].FAMILY COUNSELOR Work Phone: [facility] 07-02-2021 09:08-0400 Respiratory rate 16 /min Nevaeh Rogers [employer]OX MAKER WO[employer].FAMILY COUNSELOR Work Phone: [facility] 06-07-2021 09:16-0400 Diastolic blood pressure 89 mm[Hg] Nevaeh Rogers BOX MAKER WO[employer].FAMILY COUNSELOR Work Phone: [facility] 06-07-2021 09:16-0400 Systolic blood pressure 150 mm[Hg] Nevaeh Rogers BOX MAKER WO[employer].FAMILY COUNSELOR Work Phone: [facility] 06-07-2021 09:10-0400 Body weight 161.93 kg Nevaeh Rogers [employer] MAK[employer].FAMILY COUNSELOR Work Phone: [facility] 06-07-2021 09:10-0400 Heart rate 76 /min Nevaeh Rogers [employer] MAKER WO[employer].FAMILY COUNSELOR Work Phone: [facility] 06-07-2021 09:10-0400 Respiratory rate 16 /min Nevaeh Rogers [employer] MAK[employer].FAMILY COUNSELOR Work Phone: [facility] Encounters Encounter Date Encounter Type Care Provider Facility Start: 08-26-2024 ambulatory TESSA METZGER [facility] Start: 04-28-2024 ambulatory TESSA METZGER [facility] Start: 06-03-2023 End: 06-03-2023 ambulatory Tessa Dumont [employer] [facility] Work Phone: Start: 06-03-2023 End: 06-03-2023 Patient encounter procedure [facility] Work Phone: Start: 04-07-2023 End: 04-07-2023 Patient encounter procedure Deepika Quintero [employer].QUALITY LIAISON [facility] Comment on above: Acute cough (Primary Dx); Primary hypertension Start: 06-03-2022 ambulatory Katelyn Dunbar MA [facility] Start: 06-03-2022 Patient encounter procedure Katelyn Dunbar MA [facility] Comment on above: Appointment (A1c - c hanging PCP.) Start: 08-23-2021 Telephone encounter Nevaeh soliz APRN.FAMILY COUNSELOR Work Phone: [facility] Comment on above: Forms Start: 08-20-2021 Telephone encounter Ivonne allen MD Work Phone: [facility] [place] Comment on above: Physical Performance Results Start: 08-08-2021 Telephone encounter Anita Duran nnean PT, DPT Work Phone: [facility] Comment on above: try to schedule a ph ysical Performance Test Start: 08-05-2021 Telephone encounter Ivonne allen MD Work Phone: [facility] [place] Comment on above: Patient Update; Retu rn To Work Forms with Limitations Start: 08-02-2021 Telephone encounter Nevaeh soliz [employer] MA[employer].FAMILY COUNSELOR Work Phone: [facility] [place] Comment on above: Letter Start: 07-02-2021 End: 07-02-2021 Patient encounter procedure Nevaeh Rogers APRN.FAMILY COUNSELOR Work Phone: [facility] [place] Comment on above: Dog scratch (Primary Dx); Hypertension, unspecified type Start: 06-07-2021 End: 06-07-2021 Patient encounter procedure Nevaeh Rogers APRN.FAMILY COUNSELOR Work Phone: [facility] [place] Comment on above: Hypertension, unspec ified type (Primary Dx); Class 3 severe obesity due to excess calories without serious comorbidity with body mass index (BMI) of 50.0 to 59.9 in adult (HCC) Procedures Date Procedure Procedure Detail Performing Clinician Start: 04-11-2021 Adult depression screening assessment Nevaeh Rogers APRN.FAMILY COUNSELOR Work Phone: Plan of Treatment Date Care Activity Detail Author Start: 03-12-2023 Hemoglobin A1c measurement HbA1C [facility] Start: 02-09-2023 Depression [facility] Start: 10-10-2022 [facility] Start: 07-02-2022 Urine microalbumin profile DTAP,TDAP,TD (1 - Tdap) [facility] Comment on above: Postponed from 01/22 (Declined at this time) Start: 04-15-2022 Hepatitis B surface antibody level LDL CHOLESTEROL [facility] Start: 04-11-2022 Adult depression screening assessment DEPRESSION SCREENING [facility] Start: 04-11-2022 ANNUAL PCP TEAM GRINDER MILL OPERATOR TRICIA DISEASE VISIT ANNUAL PCP TEAM CHRONIC DISEASE VISIT [facility] Start: 04-11-2022 COVID-19 VACCINE (#1) COVID-19 VACCI NE (#1) [facility] Comment on above: Postponed from 01/22 (Declined at this time) Postponed from 07/23 (Declined at this time) Start: 04-11-2022 COVID-19 VACCINE (1) COVID-19 VACCIN E (1) [facility] Comment on above: Postponed from 01/22 (Declined at this time) Start: 04-03-2022 Glaucoma screening Dilated Retinal E xam [facility] Start: 04-03-2022 Hepatitis C antibody , confirmatory test DILATED RETINAL EXAM [facility] Start: 02-09-2022 DEPRESSION ASSESSMENT DEPRESSION ASS ESSMENT [facility] Start: 10-16-2021 Hemoglobin A1c/Hemoglobin.total in Blood HBA1C [facility] Start: 10-10-2021 [facility] Start: 2021 SHINGRIX VACCINE (1 of 2) SHINGRIX VACCINE (1 of 2) [facility] Start: 01-23-2016 COLOGUARD (FIT-DNA) COLOGUARD (FIT-D NA) [facility] Start: 01-23-2016 Colonoscopy COLONOSCOPY [facility] Start: 01-23-2016 COLORECTAL CANCER SCREENING COLORECTAL CANCER SCREENING [facility] Start: 01-23-[address] COLONOGRAPHY [facility] Start: 01-23-2016 FECAL OCCULT BLOOD FECAL OCCULT BLOO D [facility] Start: 01-23-2016 Screening for malign ant neoplasm of colon [facility] Start: 01-23-2016 SIGMOIDOSCOPY SIGMOIDOSCOPY [facility] Start: 08-20-2015 HPV TESTING HPV TESTING [facility] Start: 08-20-2015 PAP TESTING PAP TESTING [facility] Start: 08-20-2015 Screening for malign ant neoplasm of cervix [facility] Start: 2011 Mammography MAMMOGRAM [facility] Start: 2011 Screening for malign ant neoplasm of breast Mammogram Screening [facility] Start: 1990 HEPATITIS B (1 of 3 - Risk 3-dose series) HEPATITIS B (1 of 3 - Risk 3-dose series) [facility] Start: 1990 Urine microalbumin profile [facility] Start: 1989 BP CONTROLLED (<130/80) BP CONTROLLE D (<130/80) [facility] Start: 1989 HEPATITIS C SCREENING HEPATITIS C [facility] Start: 1989 Hepatitis C screening Hepatitis C [facility] Start: 1989 HIV SCREENING HIV SCREENING [facility] Start: 1989 HIV screening HIV Screening [facility] Start: 1987 ONE PNEUMOVAX PRIOR TO AGE 65 ONE PNEUMOVAX PRIOR TO AGE 65 [facility] Start: 1981 3 comp foot exam completed DIABETIC FOOT EXAM [facility] Start: 1981 Diabetic foot examination Diabetic Foot Exam [facility] Start: 1981 Hepatitis B screening URINE ALBUMIN:CREATININE RATIO [facility] Start: 1977 PNEUMOCOCCAL (1 - PCV) PNEUMOCOCCAL (1 - PCV) [facility] Start: 1977 Pneumococcal vaccination Pneum ococcal Vaccine (1 of 2 - PCV) [facility] Start: 1971 COVID-19 VACCINE (#1) COVID-19 VACCI NE (#1) [facility] Start: 1971 HEPATITIS B (1 of 3 - 3-dose series) HEPATITIS B (1 of 3 - 3-dose series) [facility] Start: 1971 Hepatitis B Vaccine (1 of 3 - 3-dose series) Hepatitis B Vaccine (1 of 3 - 3-dose series) [facility] Physical performance test/clari w/reprt ea 15 min PHYSICAL PERFORMANCE TEST Procedures Routine Class 3 severe obesity due to excess calories without serious comorbidity with body mass index (BMI) of 50.0 to 59.9 in adult (HCC) SOBOE (shortness of breath on exertion) Bilateral chronic knee pain Ordered: 08/05/2021 [facility] Work Phone: Comment on above: Ordered: 08/05/2021 [facility] Payers Date Payer Category Payer Self-pay 2022 Medicaid [employer] MEDICAID AN[employer]M BCBS MEDICAID [facility] 2022-Present [phone] [address] [place] [address] Medicaid [id number] 2021 Unknown ANTHEM BLUE ACCE SS PPO [id number] 2021-Present [phone] [address] [place] [address] PPO [id number] 2021 Unknown [id number] 2020 Medicaid [employer] MEDICAID [id number] 2020-Present [phone] [address] [place] [address] Medicaid [id number] 2011 Unknown [id number] 1970 Unknown [id number] Unknown ANTHEM [facility] [id number] Unknown [facility] [id number] Unknown [id number] Social History Date Type Detail Facility Start: 09-16-2010 End: 04-07-2023 Tobacco smoking status NHIS Never smoked tobacco [facility] Work Phone: Start: 06-07-2021 End: 04-07-2023 Alcohol intake Current non-drinker of alcohol (finding) [facility] Start: 1970 Sex Assigned At Not on file [facility] Start: 05-28-2021 End: 07-02-2021 Exposure to SARS-CoV-2 (event) Not sure [facility] Work Phone: Start: 09-16-2010 End: 04-07-2023 Tobacco use and exposure Smokeless tobacco non-user [facility] Work Phone: History of tobacco use Passive smoker [facility] Start: 03-05-2022 End: 04-07-2023 History of Social function [facility] Start: 03-05-2022 End: 04-07-2023 Tobacco use panel [facility] National Score (1-100), lower number is lower risk 64 [facility] Start: 12-19-2021 Tobacco smoking stat us NHIS Unknown if ever smoked [facility] Start: 1970 Sex Assigned At Female [facility] Clinical Notes 01-19-2007 to 04-07-2023 Deepika Quintero APRN.QUALITY LIAISON - 04/07/2023 7:34 PM ESTPatient Winsome Dunbar Ma - 06/03/2022 9:24 AM EDTTelephone Encounter - Cristina Linda LPN - 08/23/2021 3:09 PM EDT Note Date & Type Note Facility 04-07-2023 History of Present illness Narrative Chapito Winters is a 53 year old female who presents with Cough (Started 4 days ago ///States she did a breathing treatment before coming in. /), Rhinitis (Started 4 days ago /), and Breathing Problem (Wheezing /Started 4 days ago /) D3-year-old female presents today with cough cold symptoms for the last 4 days. Patient states she has been using her son's albuterol nebulizer with some relief. Patient states that she does feel like she has had some wheezing. Patient denies any fevers or chills no nausea vomiting or diarrhea. Patient declines any viral testing at this time. Patient has been taking cjoc-flr-jkqjzjc Mucinex with no relief. Patient also states that she has not been taking her blood pressure medication as it has patient was taking amlodipine 10 mg once a day. Patient denies any chest pain or vision changes. Cough Associated symptoms include shortness of breath and wheezing. PAST MEDICAL HISTORY Diagnosis Date Obesity, unspecified Obesity PMH - PAST MEDICAL HISTORY OF polycyctic ovarian disease Unspecified essential hypertension Essential hypertension/borderline ACTIVE PROBLEM LIST Obesity, Unspecified ADVANCED MATERNAL AGE:MULTIPARA[659.63] SUPRF HIGH RISK NEC [V23.89] Diabetes Mellitus, Antepartum(648.03) Gestational Hypertension Current Outpatient Medications Medication Sig Dispense Refill albuterol HFA (PROVENTIL HFA, VENTOLIN HFA) 90 mcg/actuation inhaler Inhale 2 Puffs as instructed every 4 hours as needed for wheezing/shortness of breath. 1 Each 0 amLODIPine (NORVASC) 10 mg tablet Take 1 tablet by mouth once daily. 30 tablet 0 benzonatate (TESSALON PERLES) 100 mg capsule Take 1 capsule by mouth three times a day as needed for cough for up to 21 days. 21 capsule 0 methylPREDNISolone (MEDROL, MITALI,) 4 mg Dose-Pack Take as instructed per package. 21 tablet 0 No current facility-administered medications for this visit. Social History Tobacco Use Smoking status: Never Passive exposure: Current () Smokeless tobacco: Never Vaping Use Vaping Use: Never used Substance Use Topics Alcohol use: No Drug use: No Alcohol Use: No Tobacco Use: Never FAMILY HISTORY Problem Relation Age of Onset Hypertension Mother Diabetes Mother Coronary Artery Disease Mother Coronary Artery Disease Maternal Aunt Coronary Artery Disease Maternal Uncle Lipids Mother Cancer Father Met to Brain 2008 Review of Systems Respiratory: Positive for cough, shortness of breath and wheezing. All other systems reviewed and are negative. BP 180/100[manual[ Pulse 104 Temp (Src) 97 (Esophageal) Resp 22 SpO2 97% LMP 04/07/2023 Physical Exam Vitals and nursing note reviewed. Constitutional: General: She is not in acute distress. Appearance: Normal appearance. She is normal weight. She is not ill-appearing, toxic-appearing or diaphoretic. HENT: Head: Normocephalic. Right Ear: Tympanic membrane, ear canal and external ear normal. Left Ear: Tympanic membrane, ear canal and external ear normal. Nose: No congestion or rhinorrhea. Right Sinus: Maxillary sinus tenderness present. No frontal sinus tenderness. Left Sinus: Maxillary sinus tenderness present. No frontal sinus tenderness. Mouth/Throat: Mouth: Mucous membranes are moist. Pharynx: Oropharynx is clear. No oropharyngeal exudate or posterior oropharyngeal erythema. Cardiovascular: Rate and Rhythm: Normal rate and regular rhythm. Pulses: Normal pulses. Heart sounds: Normal heart sounds. Pulmonary: Effort: Pulmonary effort is normal. No respiratory distress. Breath sounds: No stridor. Wheezing present. No rhonchi or rales. Chest: Chest wall: No tenderness. Musculoskeletal: Cervical back: Normal range of motion. No rigidity or tenderness. Lymphadenopathy: Cervical: No cervical adenopathy. Skin: General: Skin is warm and dry. Capillary Refill: Capillary refill takes less than 2 seconds. Neurological: Mental Status: She is alert. ASSESSMENT/PLAN: 1. Acute cough - ICD9: 786.2, ICD10: R05.1 (primary diagnosis) - ALBUTEROL SULFATE HFA 90 MCG/ACTUATION AEROSOL INHALER - METHYLPREDNISOLONE 4 MG TABLETS IN A DOSE PACK - BENZONATATE 100 MG CAPSULE - ALBUTEROL SULFATE HFA 90 MCG/ACTUATION AEROSOL INHALER - BENZONATATE 100 MG CAPSULE - METHYLPREDNISOLONE 4 MG TABLETS IN A DOSE PACK - FLUTICASONE PROPIONATE 50 MCG/ACTUATION NASAL SPRAY,SUSPENSION 2. Primary hypertension - ICD9: 401.9, ICD10: I10 - Uncontrolled - Factors affecting control: Patient states she does not have an active prescription medication has Discussed with patient the importance of blood pressure with goal of 140/80. This with patient would give her a 30-day supply of blood pressure medication and need to follow-up with her primary care provider. If any chest pain worsening of condition would refer to emergency room for evaluation. - AMLODIPINE 10 MG TABLET Deepika Quintero APRN.QUALITY LIAISON This note was partially generated using Dragon voice recognition system, and there may be some incorrect words, spellings, and punctuation that were not noted in checking the note before saving. documented in this encounter [facility] 04-07-2023 Instructions Deepika Quintero APRN.CNP - 04/07/2023 7:28 PM EST Body aches/Pain/Fever Acetaminophen/Tylenol not to exceed 3000mg in a 24 hour period and or Ibuprofen/Motrin 600mg every 6 hours not to exceed 2400mg in a 24 hour period if no history of gastrointestinal bleeding or ulcers for pain/discomfort of fever. Sore throat: Warm beverages with honey, salt water gargles, Chloraseptic spray, throat lozenges. Congestion: Over the counter medications like Tylenol Cold and Flu, Theraflu or Sudafed. Nasal sprays like Flonase or normal saline can also help. Coricidin for patient with Hypertension (high blood pressure) If any worsening of condition please be re-evaluated if having shortness of breath or not able to keep down fluids. documented in this encounter [facility] 06-03-2022 Note Patient Outreach (IN TMWS) CHAPITO WINTERS ([id number]) 1970 F Date Time Provider Department 06/03/22 KATELYN DUNBAR During your visit today, we recorded the following information about you: Katelyn Dunbar Ma 06/03/2022 9:28 AM Signed POPULATION HEALTH NAVIGATION OUTREACH Action/FYI A1c Patient Identified by Name and : YES, via phone Outreach Outcome/Action Spoke to patient / parent / legal guardian: Patient declined seeking new PCP - patient requested to remove LDT as PCP. Done. Did you use a PCP flex slot to schedule this appointment? N/A Reason for Outreach Care Gap or Scheduling/Wellness visits Payer: Payor: ADALID / Plan: [employer] PPO / Product Type: PPO / Care Gap Reviewed:: Annual Wellness visit Reminder: Reminder note to check Health Maintenance for items below Health Maintenance items due: HEPATITIS B(1 of 3 - 3-dose series) Never done COVID-19 VACCINE(1) Never done PNEUMOCOCCAL(1 - PCV) Never done URINE ALBUMIN:CREATININE RATIO Never done DIABETIC FOOT EXAM Never done HEPATITIS C SCREENING Never done HIV SCREENING Never done BP CONTROLLED (<130/80) Never done MAMMOGRAM Never done PAP TESTING due on 08/20/2015 HPV TESTING due on 08/20/2015 COLORECTAL CANCER SCREENING Never done SHINGRIX VACCINE(1 of 2) Never done HBA1C due on 10/16/2021 DEPRESSION ASSESSMENT Never done DILATED RETINAL EXAM due on 04/03/2022 ANNUAL PCP TEAM CHRONIC DISEASE VISIT due on 04/11/2022 LDL CHOLESTEROL due on 04/15/2022 Navigation Signature: Katelyn Dunbar Ma June 03, 2022 9:24 AM Allergies As of Date: 06/03/2022 Noted Allergy Reaction AZITHROMYCIN 04/11/2021 16 - Unknown Date Reviewed: 07/02/2021 Reviewed by: Nevaeh Rogers APRN.FAMILY COUNSELOR - Fully Assessed Reason for Visit: Appointment [[id number]] Cmt: A1c - changing PCP. Prescriptions as of 06/03/2022 - amLODIPine (NORVASC) 10 mg tablet Take 1 tablet by mouth once daily. Problem List As Of Date 06/03/2022 Noted Resolved SUPERVIS OTHER NORMAL PREG [Z34.80] 06/26/2006 01/25/2007 AMA MULTIGRAVID-ANTEPARTUM [O09.529] 07/03/2006 01/25/2007 OBESITY NOS [E66.9] 07/03/2006 PLACENTA PREVIA-ANTEPART [O44.00] 11/03/2006 12/28/2006 EXCESS FET GRTH-ANTEPART [O36.60X0] 01/19/2007 01/25/2007 ADVANCED MATERNAL AGE:MULTIPARA[659.63] [O09.52*08/19/2010 SUPRF HIGH RISK NEC [V23.89] [O09.899]08/19/2010 Diabetes mellitus, antepartum [O24.919] 08/19/2010 Gestational hypertension [O13.9] 02/05/2011 Encounter Status:Closed by KATELYN DUNBAR MA on 06/03/22 [facility] 06-03-2022 Note HNO ID: [id number] Author: Katelyn Dunbar Ma Service: ? Author Type: ? Type: Progress Notes Filed: 06/03/2022 9:28 AM Note Text: POPULATION HEALTH NAVIGATION OUTREACH Action/FYI A1c Patient Identified by Name and : YES, via phone Outreach Outcome/Action Spoke to patient / parent / legal guardian: Patient declined seeking new PCP - patient requested to remove LDT as PCP. Done. Did you use a PCP flex slot to schedule this appointment? N/A Reason for Outreach Care Gap or Scheduling/Wellness visits Payer: Payor: ADALID / Plan: [employer] PPO / Product Type: PPO / Care Gap Reviewed:: Annual Wellness visit Reminder: Reminder note to check Health Maintenance for items below Health Maintenance items due: HEPATITIS B(1 of 3 - 3-dose series) Never done COVID-19 VACCINE(1) Never done PNEUMOCOCCAL(1 - PCV) Never done URINE ALBUMIN:CREATININE RATIO Never done DIABETIC FOOT EXAM Never done HEPATITIS C SCREENING Never done HIV SCREENING Never done BP CONTROLLED (<130/80) Never done MAMMOGRAM Never done PAP TESTING due on 08/20/2015 HPV TESTING due on 08/20/2015 COLORECTAL CANCER SCREENING Never done SHINGRIX VACCINE(1 of 2) Never done HBA1C due on 10/16/2021 DEPRESSION ASSESSMENT Never done DILATED RETINAL EXAM due on 04/03/2022 ANNUAL PCP TEAM CHRONIC DISEASE VISIT due on 04/11/2022 LDL CHOLESTEROL due on 04/15/2022 Navigation Signature: Katelyn Dunbar Ma June 03, 2022 9:24 AM [facility] 06-03-2022 History of Present illness Narrative POPULATION HEALTH NAVIGATION OUTREACH Action/I A1c Patient Identified by Name and : YES, via phone Outreach Outcome/Action Spoke to patient / parent / legal guardian: Patient declined seeking new PCP - patient requested to remove LDT as PCP. Done. Did you use a PCP flex slot to schedule this appointment? N/A Reason for Outreach Care Gap or Scheduling/Wellness visits Payer: Payor: ADALID / Plan: BLUE ACCESS PPO / Product Type: PPO / Care Gap Reviewed:: Annual Wellness visit Reminder: Reminder note to check Health Maintenance for items below Health Maintenance items due: HEPATITIS B(1 of 3 - 3-dose series) Never done COVID-19 VACCINE(1) Never done PNEUMOCOCCAL(1 - PCV) Never done URINE ALBUMIN:CREATININE RATIO Never done DIABETIC FOOT EXAM Never done HEPATITIS C SCREENING Never done HIV SCREENING Never done BP CONTROLLED (<130/80) Never done MAMMOGRAM Never done PAP TESTING due on 08/20/2015 HPV TESTING due on 08/20/2015 COLORECTAL CANCER SCREENING Never done SHINGRIX VACCINE(1 of 2) Never done HBA1C due on 10/16/2021 DEPRESSION ASSESSMENT Never done DILATED RETINAL EXAM due on 04/03/2022 ANNUAL PCP TEAM CHRONIC DISEASE VISIT due on 04/11/2022 LDL CHOLESTEROL due on 04/15/2022 Navigation Signature: Katelyn Dunbar Ma June 03, 2022 9:24 AM documented in this encounter [facility] 08-23-2021 Miscellaneous Notes Form was already faxed to number below yesterday but will refax it same today. Patient calls to report Luis Armando didn't receive disability forms or physical performance results sent yesterday. Patient requesting they be faxed to [phone]. Rox Moya RN documented in this encounter [facility] 08-22-2021 Miscellaneous Notes [place] disability form with testing was faxed to [phone] testing done, form completed, please process rec'd to Nevaeh's office. Was this received? Patient reports Melaniene faxed the Physical Performance Results to pcp today. Asking pcp to please review and advise on results. documented in this encounter [facility] 08-09-2021 Miscellaneous Notes I called the patient back, she advised me she did find somewhere else closer to home and with a sooner appt. Verify correct order faxed note below Patient calling to say she can get a sooner appointment for Physical Performance Test @ [facility]. Requested order be faxed to [phone]. Done. Scooby Young, RN Patient calls in to check on status of form completion. Reviewed notes and explained to patient that it appears she needs to have the Physical Performance Test completed prior to filling out requested paperwork. Patient reports that her appointment isn't until September 26 in [place] for requested testing and she has to have a response to Sita/Luis Armando by [address]. Patient asking for provider recommendation. Rox Moya, RN Forms are at Cristela's desk, patient has not seen Derik as patient at this time. Patient is aware Nevaeh Farriss has forms. 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 Pt states she was unable to do job when she had to be on her feet. Pt states [employer] said they faxed paperwork to pcp's office, paperwork was not received in office per provider's nurse. Pt will contact [employer] & have them refax it. Pt was notified that functional capacity testing with PT was ordered & pt states she would like to schedule, pt was transferred to admiralty lawyer. Alice Santiago LPN We have not seen her for a disability claim, was she seen elsewhere for this? Seems so if she has a case number. A form was sent in with request information to quantify what she can and can not do physically. I personally do not know of any specific limitations other than shortness of breath and knee instability.. If she has not been seen elsewhere for this, ordered functional capacity testing with PT which can be completed. Form at desk in folder. Have not seen any paperwork; not sure what claim is for, I have not completed any paperwork previously for her other than the requested letter. Pt called in and reports that she wasn't able to do her work with the use of the can. 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 Her claim # is [id number]. Her insurance has provider fax # and should be faxing over paperwork for provider to fill out. Once filled out paper work needs to be sent back to fax # [phone]. If provider has any questions about the paperwork please call Pt. documented in this encounter [facility] 08-08-2021 Miscellaneous Notes Patient calling to request order for Physical Performance Test be faxed to [facility] . Done. Scooby Young RN I called patient - to schedule a Physical Performance Test - -she does not know where [facility] is. I tried explaining then she got a call. Asked me to call her back. Tried calling back line was busy. I will try again later. documented in this encounter [facility] 08-05-2021 Miscellaneous Notes Patient notified that letter can be picked up in medical records after 1:00pm. Does she normally use a cane? Not understanding the why employer need a letter but will provide. Printed, please process Patient calls to request a letter for a cane to be used at work. 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 Patient will pharmacy picking tech letter in medical records if provider is agreeable to utilizing cane at work. Please call patient at [phone] if letter approved and ready for pharmacy picking tech. Rox Moya RN documented in this encounter [facility] 07-02-2021 History of Present illness Narrative SUBJECTIVE: PNEUMOCOCCAL(1 - PCV) Never done URINE ALBUMIN:CREATININE RATIO Never done DIABETIC FOOT EXAM Never done HEPATITIS C SCREENING Never done HIV SCREENING Never done DTAP,TDAP,TD(1 - Tdap) Never done HEPATITIS B(1 of 3 - Risk 3-dose series) Never done MAMMOGRAM Never done PAP TESTING due on 08/20/2015 HPV TESTING due on 08/20/2015 COLORECTAL CANCER SCREENING Never done SHINGRIX VACCINE(1 of 2) Never done Hypertension HPI excerpted from previous visits: Chapito Winters is a 51 year old female. PMH significant for ACTIVE PROBLEM LIST Obesity, Unspecified ADVANCED MATERNAL AGE:MULTIPARA[659.63] SUPRF HIGH RISK NEC [V23.89] Diabetes Mellitus, Antepartum(648.03) Gestational Hypertension Current PCP: none Last seen:no Recent labwork:no ER/Hospitalization: no Covid19: no Diet: SAD, does not try to eat healthy Exercise: bedside exercises - sitting on side of bed Weight: stable Chronic bilateral knee pain L>R Gives way while walking about once per week. Does not fall. SOBOE: from parking lot to exam room made her short of breath; stable Last seen by Dr. Giles about 10 years ago. States she subsequently saw her primary care provider about 5 years ago in [place]. She is interested in weight loss, she would like to be able to walk a long distance for her son by October. Prefers to start with diet and excercise. Not interested in bariatric surgery at this time. Notes known history of gestational diabetes and hypertension but no recent check or treatment of either. At last visit was started on amlodipine 5 mg daily. No she is feeling well with this. She reports making dietary changes since last here. She reports stopping Mountain Dew, was previously drinking 6 to 9/day. 10 pound weight loss since last here. At her last visit she was started on amlodipine 10 mg daily. She notes feeling well with this medication. She notes continuing to work on diet and exercise. HTN: Without reported headache, chest pain, palpitations, dyspnea, peripheral edema, orthopnea, fatigue or PND. Last 14 Encounter BP Readings: Date: BP: 07/02/2021 138/85[average[ 06/07/2021 150/89[average[ 04/11/2021 176/85 02/18/2011 132/70 02/14/2011 136/94 02/07/2011 146/84 02/05/2011 158/98 02/04/2011 146/98 01/24/2011 138/88 01/17/2011 132/80 12/11/2010 126/84 12/03/2010 100/70 09/16/2010 122/60 08/19/2010 138/80 She reports monitoring her diet and trying to eat healthy. Has limited sugar intake and portion sizes. Interested in starting to exercise. She notes that her dog scratched her or bit her on Thursday. She is not sure. She did not seek care at the time. Has a bruise on her right forearm and right posterior bicep region. She had a scratch on her right forearm. This is nearly resolved. She had a cut on the bicep area that is healing, has a scab present. No induration warmth or drainage present at either site. No recent tetanus shot. Declines today. Review of Systems Constitutional: Negative. Musculoskeletal: Positive for arthralgias. Objective BP 138/85 Pulse 69 Resp 16 Wt (!) 159.2 kg (351 lb) LMP 05/06/2006 BMI 55.80 kg/m Physical Exam Vitals and nursing note reviewed. Constitutional: Appearance: Normal appearance. HENT: Head: Normocephalic and atraumatic. Eyes: Conjunctiva/sclera: Conjunctivae normal. Neck: Thyroid: No thyroid mass or thyromegaly. Vascular: Normal carotid pulses. No JVD. Cardiovascular: Rate and Rhythm: Normal rate and regular rhythm. Pulses: Carotid pulses are 2+ on the right side and 2+ on the left side. Radial pulses are 2+ on the right side and 2+ on the left side. Pulmonary: Effort: Pulmonary effort is normal. Musculoskeletal: Right lower leg: No edema. Left lower leg: No edema. Skin: General: Skin is warm and dry. Comments: ecchymosis right forearm and right posterior bicep, scab right posterior bicep ~1/2 largest diam, no induration warmth or drainage is present. Neurological: General: No focal deficit present. Mental Status: She is alert and oriented to person, place, and time. ALLERGIES Allergen Reactions Azithromycin Unknown MEDICATION amLODIPine (NORVASC) 10 mg tablet Take 1 tablet by mouth once daily. PAST MEDICAL HISTORY Diagnosis Date Obesity, unspecified Obesity PMH - PAST MEDICAL HISTORY OF polycyctic ovarian disease Unspecified essential hypertension Essential hypertension/borderline Social History Tobacco Use Smoking status: Never Smoker Smokeless tobacco: Never Used Substance Use Topics Alcohol use: No Drug use: No Component Latest Ref Rng & Units 04/15/2021 Protein, Total 6.3 - 8.0 g/dL 8.1 (H) Albumin 3.9 - 4.9 g/dL 4.3 Calcium 8.5 - 10.2 mg/dL 9.9 Bilirubin, Total 0.2 - 1.3 mg/dL 0.4 Alkaline Phosphatase 34 - 123 U/L 91 AST 13 - 35 U/L 26 ALT 7 - 38 U/L 24 Glucose 74 - 99 mg/dL 123 (H) BUN 7 - 21 mg/dL 9 Creatinine 0.58 - 0.96 mg/dL 0.53 (L) Sodium 136 - 144 mmol/L 141 Potassium 3.7 - 5.1 mmol/L 3.9 Chloride 97 - 105 mmol/L 103 CO2 22 - 30 mmol/L 26 Anion Gap 9 - 18 mmol/L 12 eGFR >=60 mL/min/1.73m 113 WBC 3.70 - 11.00 k/uL 9.21 RBC 3.90 - 5.20 m/uL 5.01 Hemoglobin 11.5 - 15.5 g/dL 15.0 Hematocrit 36.0 - 46.0 % 45.3 MCV 80.0 - 100.0 fL 90.4 MCH 26.0 - 34.0 pg 29.9 MCHC 30.5 - 36.0 g/dL 33.1 RDW-CV 11.5 - 15.0 % 11.9 Platelet Count 150 - 400 k/uL 301 MPV 9.0 - 12.7 fL 10.6 Absolute nRBC <0.01 k/uL <0.01 Cholesterol, Total <200 mg/dL 203 (H) Triglyceride <150 mg/dL 86 HDL Cholesterol >39 mg/dL 46 Non HDL Cholesterol <130 mg/dL 157 (H) Fasting Time hrs 8 VLDL Cholesterol <30 mg/dL 17 TC:HDL Ratio <5.10 4.41 LDL Cholesterol <100 mg/dL 140 (H) LDL:HDL Ratio <2.54 3.04 (H) Hemoglobin A1C 4.3 - 5.6 % 6.0 (H) Estimated Average Glucose mg/dL 126 TSH 0.270 - 4.200 mIU/L 2.700 ASSESSMENT/PLAN: 1. Hypertension, unspecified type - ICD9: 401.9, ICD10: I10 (primary diagnosis) Improved control, increase amlodipine from 5 mg to 10 mg daily. Recheck blood pressure in 1 to 2 months. Endorsed DASH diet. = 1. Dog scratch - ICD9: 919.0, E906.8, ICD10: W54.8XXA (primary diagnosis) Appears to be healing well, declines tetanus booster today. Advised to monitor sites for infection. Wash with soap and water apply [id number] antibacterial cream to the bicep area. She will return if needing additional help. Nevaeh Rogers APRN.CNS Medical Decision Making: Problems: Minimal: Self-limited or minor problem Moderate: 1+ chronic illnesses with change Risk: Moderate: Drug management Medical Decision Making Level: 4 - Moderate documented in this encounter [facility] 06-07-2021 History of Present illness Narrative SUBJECTIVE: URINE ALBUMIN:CREATININE RATIO Never done DIABETIC FOOT EXAM Never done ONE PNEUMOVAX PRIOR TO AGE 66 Never done HEPATITIS C SCREENING Never done HIV SCREENING Never done DTAP,TDAP,TD(1 - Tdap) Never done MAMMOGRAM Never done PAP TESTING due on 08/20/2015 HPV TESTING due on 08/20/2015 COLORECTAL CANCER SCREENING Never done SHINGRIX VACCINE(1 of 2) Never done Hypertension HPI excerpted from previous visit: Chapito Winters is a 51 year old female. PMH significant for ACTIVE PROBLEM LIST Obesity, Unspecified ADVANCED MATERNAL AGE:MULTIPARA[659.63] SUPRF HIGH RISK NEC [V23.89] Diabetes Mellitus, Antepartum(648.03) Gestational Hypertension Current PCP: none Last seen:no Recent labwork:no ER/Hospitalization: no Covid19: no Diet: SAD, does not try to eat healthy Exercise: bedside exercises - sitting on side of bed Weight: stable Chronic bilateral knee pain L>R Gives way while walking about once per week. Does not fall. SOBOE: from parking lot to exam room made her short of breath; stable Last seen by Dr. Giles about 10 years ago. States she subsequently saw her primary care provider about 5 years ago in [place]. She is interested in weight loss, she would like to be able to walk a long distance for her son by October. Prefers to start with diet and excercise. Not interested in bariatric surgery at this time. Notes known history of gestational diabetes and hypertension but no recent check or treatment of either. At last visit was started on amlodipine 5 mg daily. No she is feeling well with this. She reports making dietary changes since last here. She reports stopping Mountain Dew, was previously drinking 6 to 9/day. 10 pound weight loss since last here. HTN: Without reported headache, chest pain, palpitations, dyspnea, peripheral edema, orthopnea, fatigue or PND. Last 14 BP Last 14 Encounter BP Readings: Date: BP: 06/07/2021 150/89[average[ 04/11/2021 176/85 02/18/2011 132/70 02/14/2011 136/94 02/07/2011 146/84 02/05/2011 158/98 02/04/2011 146/98 01/24/2011 138/88 01/17/2011 132/80 12/11/2010 126/84 12/03/2010 100/70 09/16/2010 122/60 08/19/2010 138/80 03/04/2007 138/88 Review of Systems Constitutional: Negative. Musculoskeletal: Positive for arthralgias. Objective BP 150/89 Pulse 76 Resp 16 Wt (!) 161.9 kg (357 lb) LMP 05/06/2006 BMI 56.76 kg/m Physical Exam Vitals and nursing note reviewed. Constitutional: Appearance: Normal appearance. HENT: Head: Normocephalic and atraumatic. Eyes: Conjunctiva/sclera: Conjunctivae normal. Neck: Thyroid: No thyroid mass or thyromegaly. Vascular: Normal carotid pulses. No JVD. Cardiovascular: Rate and Rhythm: Normal rate and regular rhythm. Pulses: Carotid pulses are 2+ on the right side and 2+ on the left side. Radial pulses are 2+ on the right side and 2+ on the left side. Heart sounds: Normal heart sounds. Pulmonary: Effort: Pulmonary effort is normal. Breath sounds: Normal breath sounds. Abdominal: General: Bowel sounds are normal. Musculoskeletal: Right lower leg: No edema. Left lower leg: No edema. Skin: General: Skin is warm and dry. Neurological: General: No focal deficit present. Mental Status: She is alert and oriented to person, place, and time. ALLERGIES Allergen Reactions Azithromycin Unknown MEDICATION amLODIPine (NORVASC) 5 mg tablet Take 1 tablet by mouth once daily. PAST MEDICAL HISTORY Diagnosis Date Obesity, unspecified Obesity PMH - PAST MEDICAL HISTORY OF polycyctic ovarian disease Unspecified essential hypertension Essential hypertension/borderline Social History Tobacco Use Smoking status: Never Smoker Smokeless tobacco: Never Used Substance Use Topics Alcohol use: No Drug use: No Component Latest Ref Rng & Units 04/15/2021 Protein, Total 6.3 - 8.0 g/dL 8.1 (H) Albumin 3.9 - 4.9 g/dL 4.3 Calcium 8.5 - 10.2 mg/dL 9.9 Bilirubin, Total 0.2 - 1.3 mg/dL 0.4 Alkaline Phosphatase 34 - 123 U/L 91 AST 13 - 35 U/L 26 ALT 7 - 38 U/L 24 Glucose 74 - 99 mg/dL 123 (H) BUN 7 - 21 mg/dL 9 Creatinine 0.58 - 0.96 mg/dL 0.53 (L) Sodium 136 - 144 mmol/L 141 Potassium 3.7 - 5.1 mmol/L 3.9 Chloride 97 - 105 mmol/L 103 CO2 22 - 30 mmol/L 26 Anion Gap 9 - 18 mmol/L 12 eGFR >=60 mL/min/1.73m 113 WBC 3.70 - 11.00 k/uL 9.21 RBC 3.90 - 5.20 m/uL 5.01 Hemoglobin 11.5 - 15.5 g/dL 15.0 Hematocrit 36.0 - 46.0 % 45.3 MCV 80.0 - 100.0 fL 90.4 MCH 26.0 - 34.0 pg 29.9 MCHC 30.5 - 36.0 g/dL 33.1 RDW-CV 11.5 - 15.0 % 11.9 Platelet Count 150 - 400 k/uL 301 MPV 9.0 - 12.7 fL 10.6 Absolute nRBC <0.01 k/uL <0.01 Cholesterol, Total <200 mg/dL 203 (H) Triglyceride <150 mg/dL 86 HDL Cholesterol >39 mg/dL 46 Non HDL Cholesterol <130 mg/dL 157 (H) Fasting Time hrs 8 VLDL Cholesterol <30 mg/dL 17 TC:HDL Ratio <5.10 4.41 LDL Cholesterol <100 mg/dL 140 (H) LDL:HDL Ratio <2.54 3.04 (H) Hemoglobin A1C 4.3 - 5.6 % 6.0 (H) Estimated Average Glucose mg/dL 126 TSH 0.270 - 4.200 mIU/L 2.700 ASSESSMENT/PLAN: 1. Class 3 severe obesity with body mass index (BMI) of 50.0 to 59.9 in adult, unspecified obesity type, unspecified whether serious comorbidity present ([facility]) - ICD9: 278.01, V85.43, ICD10: E66.01, Z68.43 (primary diagnosis) She notes 10 pound weight loss since last seen by stopping drinking Mountain Dew. She is interested in seeing dietitian. 2. Hypertension, unspecified type - ICD9: 401.9, ICD10: I10 (primary diagnosis) Improved control, increase amlodipine from 5 mg to 10 mg daily. Recheck blood pressure in 1 to 2 months. Endorsed DASH diet. 2. Class 3 severe obesity due to excess calories without serious comorbidity with body mass index (BMI) of 50.0 to 59.9 in adult (HCC) - ICD9: 278.01, V85.43, ICD10: E66.01, Z68.43 Continue with portion control, avoiding fast foods and sugar in diet. Routine exercise daily as able. Nevaeh Rogers APRN.CNS Medical Decision Making: Problems: Moderate: New problem with uncertain prognosis Data: Unique test(s) ordered: 3+ Risk: Moderate: Drug management Medical Decision Making Level: 4 - Moderate documented in this encounter [facility] 01-19-2007 History of Past i llness Narrative Problem Noted Date Resolved Date Excessive growth affec ting management of mother, antepartum 01/19/2007 01/25/2007 Placenta previa without hemorrhage, antepartum 0 11/03/2006 12/28/2006 Elderly multigravida with an tepartum condition or complication 07/03/2006 01/25/2007 Supervision of other normal 06/26/2006 01/25/2007 documented as of this encounter (statuses as of 06/07/2021) [facility]12[facility] History of Past illness Narrative* Problem Noted Date Resolved Date Excessive growth affec ting management of mother, antepartum 01/19/2007 01/25/2007 Placenta previa without hemorrhage, antepartum 0 11/03/2006 12/28/2006 Elderly multigravida with an tepartum condition or complication 07/03/2006 01/25/2007 Supervision of other normal 06/26/2006 01/25/2007 documented as of this encounter (statuses as of 07/02/2021) [facility] History of Past illness Narrative* Problem Noted Date Resolved Date Excessive growth affec ting management of mother, antepartum 01/19/2007 01/25/2007 Placenta previa without hemorrhage, antepartum 0 11/03/2006 12/28/2006 Elderly multigravida with an tepartum condition or complication 07/03/2006 01/25/2007 Supervision of other normal 06/26/2006 01/25/2007 documented as of this encounter (statuses as of 08/05/2021) [facility] History of Past illness Narrative* Problem Noted Date Resolved Date Excessive growth affec ting management of mother, antepartum 01/19/2007 01/25/2007 Placenta previa without hemorrhage, antepartum 0 11/03/2006 12/28/2006 Elderly multigravida with an tepartum condition or complication 07/03/2006 01/25/2007 Supervision of other normal 06/26/2006 01/25/2007 documented as of this encounter (statuses as of 08/08/2021) [facility] History of Past illness Narrative* Problem Noted Date Resolved Date Excessive growth affec ting management of mother, antepartum 01/19/2007 01/25/2007 Placenta previa without hemorrhage, antepartum 0 11/03/2006 12/28/2006 Elderly multigravida with an tepartum condition or complication 07/03/2006 01/25/2007 Supervision of other normal 06/26/2006 01/25/2007 documented as of this encounter (statuses as of 08/09/2021) [facility] History of Past illness Narrative* Problem Noted Date Resolved Date Excessive growth affec ting management of mother, antepartum 01/19/2007 01/25/2007 Placenta previa without hemorrhage, antepartum 0 11/03/2006 12/28/2006 Elderly multigravida with an tepartum condition or complication 07/03/2006 01/25/2007 Supervision of other normal 06/26/2006 01/25/2007 documented as of this encounter (statuses as of 08/22/2021) [facility] History of Past illness Narrative* Problem Noted Date Resolved Date Excessive growth affec ting management of mother, antepartum 01/19/2007 01/25/2007 Placenta previa without hemorrhage, antepartum 0 11/03/2006 12/28/2006 Elderly multigravida with an tepartum condition or complication 07/03/2006 01/25/2007 Supervision of other normal 06/26/2006 01/25/2007 documented as of this encounter (statuses as of 08/23/2021) [facility] History of Past illness Narrative* Problem Noted Date Resolved Date Excessive growth affec ting management of mother, antepartum 01/19/2007 01/25/2007 Placenta previa without hemorrhage, antepartum 0 11/03/2006 12/28/2006 Elderly multigravida with an tepartum condition or complication 07/03/2006 01/25/2007 Supervision of other normal 06/26/2006 01/25/2007 documented as of this encounter (statuses as of 06/03/2022) [facility] History of Past illness Narrative* Problem Noted Date Diagnosed Date Resolved Date Excessive growth affec ting management of mother, antepartum 01/19/2007 01/25/2007 Placenta previa without hemo rrhage, antepartum 11/03/2006 12/28/2006 Elderly multigravida with an tepartum condition or complication 07/03/2006 01/25/2007 Supervision of other normal 06/26/2006 01/25/2007 documented as of this encounter (statuses as of 04/08/2023) [facility] note* Diagnosis Hypertension, unspecified type- Primary Class 3 severe obesity due to excess calories without serious comorbidity with body mass index (BMI) of 50.0 to 59.9 in adult ([facility]) documented in this encounter [facility] note* Diagnosis Dog scratch- Primary Other and unspecified superficial injury of other, multiple, and unspecified sites, without mention of infection Hypertension, unspecified type documented in this encounter [facility] note* Diagnosis Class 3 severe obesity due to excess calories without serious comorbidity with body mass index (BMI) of 50.0 to 59.9 in adult (HCC)- Primary SOBOE (shortness of breath on exertion) Shortness of breath Bilateral chronic knee pain Pain in joint, lower leg documented in this encounter [facility] note* Diagnosis Acute cough- Primary Primary hypertension Unspecified essential hypertension documented in this encounter [facility] noteNo assessment information availableWMagruder Memorial Hospital Work Phone: Summary Purpose Family History No Family History Records FoundNo Family History Records FoundNo Family History Records FoundNo Family History Records Found Advance Directives No Advanced Directives Records FoundNo Advanced Directives Records FoundNo Advanced Directives Records FoundNo Advanced Directives Records Found Additional Source Comments Source Comments (unrecognize d section and content) In the event this informatio n is protected by the Federal Confidentiality of Alcohol and Drug Abuse Patient Records regulations: The Federal rules restrict any use of the information to criminally investigate or prosecute any alcohol or drug abuse patient.[facility] the event this information is protected by the Federal Confidentiality of Alcohol and Drug Abuse Patient Records regulations: The Federal rules restrict any use of the information to criminally investigate or prosecute any alcohol or drug abuse patient.[facility] the event this information is protected by the Federal Confidentiality of Alcohol and Drug Abuse Patient Records regulations: The Federal rules restrict any use of the information to criminally investigate or prosecute any alcohol or drug abuse patient.[facility] the event this information is protected by the Federal Confidentiality of Alcohol and Drug Abuse Patient Records regulations: The Federal rules restrict any use of the information to criminally investigate or prosecute any alcohol or drug abuse patient.[facility] the event this information is protected by the Federal Confidentiality of Alcohol and Drug Abuse Patient Records regulations: The Federal rules restrict any use of the information to criminally investigate or prosecute any alcohol or drug abuse patient.[facility] the event this information is protected by the Federal Confidentiality of Alcohol and Drug Abuse Patient Records regulations: The Federal rules restrict any use of the information to criminally investigate or prosecute any alcohol or drug abuse patient.[facility] the event this information is protected by the Federal Confidentiality of Alcohol and Drug Abuse Patient Records regulations: The Federal rules restrict any use of the information to criminally investigate or prosecute any alcohol or drug abuse patient.[facility] the event this information is protected by the Federal Confidentiality of Alcohol and Drug Abuse Patient Records regulations: The Federal rules restrict any use of the information to criminally investigate or prosecute any alcohol or drug abuse patient.[facility] the event this information is protected by the Federal Confidentiality of Alcohol and Drug Abuse Patient Records regulations: The Federal rules restrict any use of the information to criminally investigate or prosecute any alcohol or drug abuse patient.[facility] Reason for Visit (unrecogniz ed section and content) Reason Comments Blood Pressure Reason Comments Letter Reason Comments try to schedule a physical Performance T est Reason Comments Patient Update Return To Work Forms with Limitations Reason Comments Physical Performance Results Reason Comments Forms Reason Onset Date Comments Appointment 06/03/2022 A1c - changing P CP. Reason Comments Cough Started 4 days ago S tates she did a breathing treatment before coming in. Rhinitis Started 4 days ago Breathing Problem Wheezing Started 4 d ays ago Care Teams (unrecognized sec tion and content) Bell Maker Relationship Specialty Start Date End Date Ivonne More MD [facility] [place] [address] PCP - General Internal Medicine 04/11/21 Bell Maker Relationship Specialty Start Date End Date Ivonne More MD [address] [place] [id number] PCP - General Internal Medicine 04/11/21 Bell Maker Relationship Specialty Start Date End Date Ivonne More MD [address] [place] [id number] PCP - General Internal Medicine 04/11/21 Bell Maker Relationship Specialty Start Date End Date Ivonne More MD [address] [place] [id number] PCP - General Internal Medicine 04/11/21 Bell Maker Relationship Specialty Start Date End Date Ivonne More MD [address] [place] [id number] PCP - General Internal Medicine 04/11/21 Bell Maker Relationship Specialty Start Date End Date Ivonne More MD [address] [place] [id number] PCP - General Internal Medicine 04/11/21 Team Status: Active Member Role Status Dates Dr. Rosendo Sheth MD Family Provider Active Tessa Dumont ARTISTS' MODEL, ARTISTS[employer] MODEL-C Primary Care Provider Active Team Status: Inactive Member Role Status Dates Tessa Dumont ARTISTS' MODEL, ARTISTS' MODEL-C Primary Care Pro vider, Attending Provider, Referring Provider Active INFORMATION SOURCE (unrecogn ized section and content) DATE CREATED AUTHOR 08/09/2021 [facility] DATE CREATED AUTHOR AUTHOR'S ORGANIZ ATION 09/12/2022 [facility] DATE CREATED AUTHOR AUTHOR'S ORGANIZ ATION 06/11/2023 [facility] [place] DATE CREATED AUTHOR AUTHOR'S ORGANIZ ATION 08/29/2024 [facility] Goals (unrecognized section and content) Goals may be documented in a n alternate section FOR RECORDS PERTAINING TO PATIENTS WHO ARE OR HAVE BEEN ENROLLED IN A CHEMICAL DEPENDENCY/SUBSTANCEABUSE PROGRAM, SOME INFORMATION MAY BE OMITTED. This clinical summary was aggregated from multiple sources. Caution should be exercised in using it in the provision of clinical care. This summary normalizes information from multiple sources, and as a consequence, information in this document may materially change the coding, format and clinical context of patient data. In addition, data may be omitted in some cases. CLINICAL DECISIONS SHOULD BE BASED ON THE PRIMARY CLINICAL RECORDS. [employer] provides no warranty or guarantee of the accuracy or completeness of information in this document.
--- NOTE | 2024-12-15 23:39 | EX.ED.DYSGE1 ---
HPI History of Present Illness Chief Complaint: Asthma Narrative Narrative: Patient was seen and examined after presenting to ED for asthma exacerbation she is presenting with her son who is here for the same there recently homeless now living in a different environment seems to be an environmental because they have been sharing inhalers she denies having any fevers chills chest pain or pressure. [facility] Medical History Strain of left biceps Left shoulder strain Home Medications ?Medication ?Instructions ?Recorded ?Last Taken ?Type cyclobenzaprine 10 mg tablet 10 mg PO HS PRN muscle spasm #10 12/19/21 Unknown Rx tabs albuterol sulfate 90 mcg/actuation 2 puff inhalation Q4H PRN PRN 12/16/24 Unknown Rx aerosol inhaler (Ventolin HFA) Wheezing #1 ea prednisone 20 mg tablet 40 mg (2 x 20 mg) PO DAILY 5 days 12/16/24 Unknown Rx #10 tabs Allergy/AdvReac Type Severity Reaction Status Date / Time azithromycin Allergy Mild Diarrhea Verified 12/15/24 23:14 Social History Smoking Status: Never smoker ROS ROS ED ROS Narrative Pertinent Positives: Shortness of breath wheezing history of asthma environmental factors homeless Pertinent Negatives: Fevers chills chest pain pressure or history of DVT or PE use of anticoagulation nausea vomiting myalgias diarrhea The remainder of review of systems negative unless otherwise stated in the HPI above. Systems reviewed including constitutional, psychiatric, cardiovascular, respiratory, integument, HENT, gastrointestinal. EXAM Physical Exam Narrative Exam Narrative: Patient is afebrile hemodynamically stable does not appear toxic or in distress she has some very subtle wheezing bilaterally she has intact and equal MSPs in her extremities no lower extremity edema or calf tenderness. Normal range of motion of her head and neck. Normal heart sounds Const Vital Signs: 12/15/24 23:14 12/15/24 23:40 12/15/24 23:48 Temperature 96.8 F L Temperature Source Temporal Pulse Rate 84 88 Respiratory Rate 18 18 Respiratory Effort Normal Respiratory Depth Normal Respiratory Pattern Normal Blood Pressure 200/91 H Blood Pressure Mean 127 Pulse Ox 97 Oxygen Delivery Method Room Air Room Air MDM MDM MDM Narrative Medical decision making narrative: Nursing notes, triage notes, available previous documentation, and vital signs were reviewed. Any discrepancies noted were addressed. Differential Diagnoses: Asthma exacerbation lower suspicion for heart failure exacerbation or PE low suspicion for infectious causes Interventions: Breathing treatments prednisone Imaging Reviewed: Personally reviewed and interpreted by me: Chest x-ray no pneumonia edema or widened mediastinum or pneumothoraces Previous Documentation Reviewed: None available or applicable at this time. ED Course: Patient presenting with shortness of breath sharing an inhaler with her son seems to be an environmental trigger right now for their asthma she will be given breathing treatments and oral prednisone. On reevaluation patient appears to be doing well she was up and ambulatory did not desaturate below 95% she feels better she would like to be discharged she will be given return precautions follow-up recommendations as well as prescription for an inhaler as well as steroids she is stable for discharge. This note was made utilizing voice recognition software. All attempts were made to correct spelling or other errors prior to note completion. However, due to the fast-paced nature of emergency medicine, some errors may still be present. Discharge Plan Triage Chief Complaint: Asthma ED Provider: Vivienne Singh Dx/Rx/DC Orders Instructions: ED Asthma, Acute (Adult) Prescriptions: New albuterol sulfate [Ventolin HFA] 90 mcg/actuation HFA aerosol inhaler 2 puff inhalation Q4H PRN PRN (Reason: Wheezing) Qty: 1 0RF prednisone 20 mg tablet 40 mg PO DAILY 5 Days Qty: 10 0RF No Action cyclobenzaprine 10 mg tablet 10 mg PO HS PRN (Reason: muscle spasm) Qty: 10 0RF Primary Care Provider: Tessa Hunt NP Referrals: Tessa Hunt NP, [employer] [Primary Care Provider, Family Practice] Activity Restrictions/Additional Instructions: Be sure to follow-up with your primary care doctor we are giving you prescriptions for an inhaler as well as steroids do not hesitate to return if you feel like you are getting worse Print Language: Vietnamese Disposition Disposition: Home, Self Care
[2024-12-15 23:40] VITALS: O2SAT 98
[2024-12-15 23:48] VITALS: PULSE 88; RESP 18
--- NOTE | 2024-12-15 23:50 | RAD_ITS ---
PROCEDURE: CHEST PA AND LATERAL 12/16/2024 REASON FOR EXAM: SHORTNESS OF BREATH TECHNIQUE: Procedure Code: RADCXR Modality: DX Procedure: CHEST PA AND LATERAL FINDINGS: Mildly prominent interstitial markings within both lungs likely represent mild chronic interstitial changes. No airspace consolidation or pleural effusion. The cardiac silhouette is normal in size and contour. No acute osseous abnormality. RAD/Chest PA and Lateral IMPRESSION: As above. Reading Location: [id number]
[2024-12-16 00:49] VITALS: O2SAT 96
[2024-12-16 01:10] VITALS: BP 200/91; PULSE 88; RESP 18; TEMP 36; O2SAT 97
== END 2024-12-16 01:11 | disposition home or self-care (01) ==
PROVIDERS: Emergency Provider Specialist/Technologist Athletic Trainer; PCP Nurse Practitioner Family; Visit Provider Specialist/Technologist Athletic Trainer
DX: J45.901 Unspecified asthma with (acute) exacerbation (principal); Z59.00 Homelessness unspecified
CPT/HCPCS: 71046; 94640; 99282